=== PATIENT | male | born 1945 | race Hispanic/Latino ===

== ENCOUNTER 2019-05-17 10:42 | Emergency (ER) | payer OTHER ==
[2019-05-17] MEDS ORDERED: DEXAMETHASONE SOD PHOSPHATE 10MG/ML 1ML VIAL ONE (11:03)
[2019-05-17] MEDS ORDERED: KETOROLAC TROMETHAMINE 15MG/ML ONE (11:04)
== END 2019-05-17 12:57 | disposition home or self-care (01) ==
LOC: EDH 10:42
DX: S33.5XXA Sprain of ligaments of lumbar spine, initial encounter (principal); X58.XXXA Exposure to other specified factors, initial encounter; Y93.89 Activity, other specified; Y92.89 Other specified places as the place of occurrence of the external cause; Y99.8 Other external cause status
CPT/HCPCS: 72100; 96372 ×2; 99284; J1100; J1885

== ENCOUNTER 2020-07-25 19:57 | Emergency (ER) | payer OTHER ==
[2020-07-25] MEDS ORDERED: PANTOPRAZOLE 40 MG/VIAL ONE (21:50)
[2020-07-25] MEDS ORDERED: ORPHENADRINE CITRATE 30 MG/ML ML ONE (21:50)
[2020-07-25] MEDS ORDERED: SODIUM CHLORIDE 0.9% 1000ML 1,000 ML IV ONE (21:52)
[2020-07-25] MEDS ORDERED: FAMOTIDINE/PF 20 MG/2 ML VIAL IV ONE (21:52)
[2020-07-25 22:54] LABS: BASOPHILS % (AUTO) 0.9 % (0.0-5.0); EOSINOPHILS % (AUTO) 1.3 % (0.0-8.0); HEMATOCRIT 37.7 % (42-54); LYMPHOCYTES % (AUTO) 32.1 % (21.0-51.0); MEAN CORPUSCULAR HGB CONC 33.4 g/dL (32.0-36.0); MEAN CORPUSCULAR VOLUME 89.8 fL (79-99); MONOCYTES % (AUTO) 7.3 % (3.0-13.0); NEUTROPHILS % (AUTO) 58.2 % (40.0-77.0); PLATELET COUNT (AUTO) 164 K/uL (130-400); RED CELL DISTRIBUTION WIDTH 12.7 % (11.0-15.5); WHITE BLOOD COUNT (AUTO) 4.6 K/uL (4.8-10.8)
[2020-07-25 23:05] LABS: CREATININE 0.7 mg/dL (0.5-1.5); POTASSIUM 3.9 mmol/L (3.5-5.1)
[2020-07-25 23:10] LABS: ALBUMIN 3.9 g/dL (3.5-5.0); BILIRUBIN,TOTAL 0.8 mg/dL (0.2-1.0); TOTAL PROTEIN, SERUM 6.7 g/dL (6.0-8.3)
[2020-07-25 23:16] LABS: INR 1.03 (0.85-1.15); PROTHROMBIN TIME 11.2 SEC (9.6-11.6)
[2020-07-25] MEDS ORDERED: IOHEXOL 350 MG/ML 100ML INFUS..BTL IV ONE (23:17)
[2020-07-25 23:18] LABS: PARTIAL THROMBOPLASTIN TIME 24.2 SEC (26.3-35.5)
[2020-07-26] MEDS ORDERED: KETOROLAC TROMETHAMINE 15MG/ML ONE (00:17)
== END 2020-07-26 00:43 | disposition home or self-care (01) ==
LOC: EDH 19:57
DX: K59.00 Constipation, unspecified (principal); M54.5 Low back pain; E86.9 Volume depletion, unspecified; M62.830 Muscle spasm of back; K21.9 Gastro-esophageal reflux disease without esophagitis; I10 Essential (primary) hypertension; Z87.891 Personal history of nicotine dependence
CPT/HCPCS: 36415; 71260; 74177; 80053; 83605; 83690; 84484; 85025; 85610; 85730; 93005; 96361; 96374; 96375 ×2; 99285; C9113; J1885; J2360; J3490; J7030; Q9967

== ENCOUNTER 2021-01-08 10:52 | Emergency (ER) | payer OTHER ==
[~2021-01-08] VITALS: Ht 170.2 cm; Wt 69.9 kg
[2021-01-08 10:54] VITALS: BP 140/66
[2021-01-08] MEDS ORDERED: BUPIVACAINE/PF 0.5% 30ML VIAL ONE (12:05)
[2021-01-08] MEDS ORDERED: LIDOCAINE HCL 400MG/20ML VIAL ONE (12:09)
[2021-01-08 12:21] VITALS: BP 125/74
[2021-01-08] MEDS ORDERED: TRIAMCINOLONE ACETONIDE 40 MG/ML 1ML VIAL SQ SCH (12:30)
[2021-01-08] MEDS ORDERED: NAPR-1180 PO (12:47)
== END 2021-01-08 13:01 | disposition home or self-care (01) ==
LOC: EDH 10:52
DX: M54.16 Radiculopathy, lumbar region (principal); M54.42 Lumbago with sciatica, left side; E78.00 Pure hypercholesterolemia, unspecified; I10 Essential (primary) hypertension
CPT/HCPCS: 20552; 99284; J3301; J3490

== ENCOUNTER → 2021-03-10 | Outpatient (CLI) | payer OTHER ==
[~2021-03-10] MED LIST: NAPR-1180 PO
== END | disposition home or self-care (01) ==
LOC: SHCH 14:20
PROVIDERS: ATTEND Student in an Organized Health Care Education/Training Program
DX: I36.1 Nonrheumatic tricuspid (valve) insufficiency (principal)
CPT/HCPCS: 93306; 93356

== ENCOUNTER 2021-05-18 10:07 | Emergency (ER) | payer OTHER ==
[~2021-05-18] VITALS: Ht 167.6 cm; Wt 70.3 kg
[2021-05-18 10:33] LABS: EOSINOPHILS % (AUTO) 0.9 % (0.0-8.0); LYMPHOCYTES % (AUTO) 24.6 % (21.0-51.0); MEAN CORPUSCULAR HEMOGLOBIN 30.4 pg (27.0-33.0); MEAN CORPUSCULAR HGB CONC 33.3 g/dL (32.0-36.0); MEAN CORPUSCULAR VOLUME 91.3 fL (79-99); MONOCYTES % (AUTO) 7.9 % (3.0-13.0); NEUTROPHILS % (AUTO) 61.3 % (40.0-77.0); PLATELET COUNT (AUTO) 241 K/uL (130-400); RED BLOOD CELL COUNT(AUTO) 4.38 MIL/uL (4.50-6.20); RED CELL DISTRIBUTION WIDTH 12.4 % (11.0-15.5)
[2021-05-18 10:45] LABS: CREATININE 0.8 mg/dL (0.5-1.5); POTASSIUM 3.6 mmol/L (3.5-5.1)
[2021-05-18 10:50] LABS: ALBUMIN 3.7 g/dL (3.5-5.0); BILIRUBIN,TOTAL 0.6 mg/dL (0.2-1.0); TOTAL PROTEIN, SERUM 6.6 g/dL (6.0-8.3)
[2021-05-18 10:50] LABS: APPEARANCE,URINE Clear (CLEAR); BILIRUBIN,URINE Negative (NEGATIVE); COLOR,URINE Yellow (YELLOW); GLUCOSE, URINE (UA) Negative (NEGATIVE); KETONES,URINE Negative (NEGATIVE); LEUKOCYTE ESTERASE ,URINE Negative (NEGATIVE); NITRATE,URINE Negative (NEGATIVE); OCCULT BLOOD,URINE Small (NEGATIVE); PROTEIN,URINE Negative (NEGATIVE)
[2021-05-18 11:10] LABS: BACTERIA,URINE Rare /HPF (None Seen); RBC,URINE 0-1 /HPF (0-1); SQUAMOUS EPITHELIAL CELL,UR Rare /HPF (0-2); WBC,URINE 0-1 /HPF (0-1)
[2021-05-18 12:12] VITALS: BP 105/62
== END 2021-05-18 12:21 | disposition home or self-care (01) ==
LOC: EDH 10:07
DX: U07.1 COVID-19 (principal); R07.89 Other chest pain; E78.00 Pure hypercholesterolemia, unspecified; I10 Essential (primary) hypertension; Z79.1 Long term (current) use of non-steroidal anti-inflammatories (NSAID)
CPT/HCPCS: 36415; 71045; 80053; 81001; 84484; 85025; 85378; 93005

== ENCOUNTER → 2021-05-23 | Outpatient (CLI) | payer OTHER | END | disposition home or self-care (01) | LOC: SHCH 07:48 | PROVIDERS: ATTEND Student in an Organized Health Care Education/Training Program | DX: I70.1 Atherosclerosis of renal artery (principal); I10 Essential (primary) hypertension | CPT/HCPCS: 93975 ==

== ENCOUNTER → 2021-05-31 | Outpatient (CLI) | payer OTHER ==
[~2021-05-31] MED LIST changes: +IOHEXOL 350 MG/ML 100ML INFUS..BTL IV ONE; +IOHEXOL-350 75 ML VIAL IV ONE; +METOPROLOL TARTRATE 1 MG/ML 5ML VIAL IV ONE
== END | disposition home or self-care (01) ==
LOC: RAH 07:43
PROVIDERS: ATTEND Student in an Organized Health Care Education/Training Program
DX: I25.10 Atherosclerotic heart disease of native coronary artery without angina pectoris (principal)
CPT/HCPCS: 75574; J3490; Q9967 ×2

== ENCOUNTER → 2021-06-28 | Outpatient (CLI) | payer OTHER ==
[~2021-06-28] MED LIST changes: -IOHEXOL 350 MG/ML 100ML INFUS..BTL IV ONE; -IOHEXOL-350 75 ML VIAL IV ONE; -METOPROLOL TARTRATE 1 MG/ML 5ML VIAL IV ONE
== END | disposition home or self-care (01) ==
LOC: SHCH 14:03
PROVIDERS: ATTEND Student in an Organized Health Care Education/Training Program
DX: I70.219 Atherosclerosis of native arteries of extremities with intermittent claudication, unspecified extremity (principal)
CPT/HCPCS: 93925

== ENCOUNTER → 2023-02-14 | Outpatient (CLI) | payer OTHER ==
[~2023-02-14] MED LIST changes: +AMLO-257 PO; +ATOR-2 PO; +CHLO1LIQ2; +CYANOCOBALAMIN PO; +DICL100G60 TP; +FINA5TAB41 PO; +IBUP-1493 PO; +MEMA10TA55 PO; +NUT.237L33 PO; +PSYLLIUM PO; +TAMS-1 PO; +TRAM-355 PO
[2023-02-14 11:23] LABS: BASOPHILS # (AUTO) 0.03 K/uL (0.00-0.20); BASOPHILS % (AUTO) 0.7 % (0.0-5.0); EOSINOPHILS # (AUTO) 0.05 K/uL (0.00-0.70); EOSINOPHILS % (AUTO) 1.2 % (0.0-8.0); HEMATOCRIT 37.6 % (42-54); IMMATURE GRANULOCYTE ABSOLUTE 0.02 K/uL (0-1); LYMPHOCYTES % (AUTO) 23.6 % (21.0-51.0); MEAN CORPUSCULAR HEMOGLOBIN 30.7 pg (27.0-33.0); MEAN CORPUSCULAR HGB CONC 32.7 g/dL (32.0-36.0); MEAN CORPUSCULAR VOLUME 93.8 fL (79-99); MONOCYTES # (AUTO) 0.3 K/uL (0.1-1.0); MONOCYTES % (AUTO) 7.4 % (3.0-13.0); NEUTROPHILS # (AUTO) 2.9 K/uL (1.8-7.7); NEUTROPHILS % (AUTO) 66.6 % (40.0-77.0); PLATELET COUNT (AUTO) 190 K/uL (130-400); RED BLOOD CELL COUNT(AUTO) 4.01 MIL/uL (4.50-6.20); RED CELL DISTRIBUTION WIDTH 13.1 % (11.0-15.5); WHITE BLOOD COUNT (AUTO) 4.3 K/uL (4.8-10.8)
[2023-02-14 11:33] LABS: INR 0.95 (0.85-1.15); PROTHROMBIN TIME 11.1 SEC (9.6-11.6)
[2023-02-14 11:36] LABS: ALBUMIN 3.7 g/dL (3.5-5.0); BILIRUBIN,TOTAL 0.8 mg/dL (0.2-1.0); CREATININE 0.8 mg/dL (0.5-1.5); POTASSIUM 3.8 mmol/L (3.5-5.1); TOTAL PROTEIN, SERUM 6.7 g/dL (6.0-8.3)
== END | disposition home or self-care (01) ==
LOC: LAB 10:20
PROVIDERS: ATTEND Internal Medicine Gastroenterology
DX: Z01.812 Encounter for preprocedural laboratory examination (principal); R93.2 Abnormal findings on diagnostic imaging of liver and biliary tract
CPT/HCPCS: 36415; 80053; 85025; 85610; 87520

== ENCOUNTER → 2023-03-04 | Outpatient (CLI) | payer OTHER ==
[~2023-03-04] MED LIST changes: -IBUP-1493 PO; -NAPR-1180 PO; -TRAM-355 PO
== END | disposition home or self-care (01) ==
LOC: RAH 12:55
PROVIDERS: ATTEND Chiropractor
DX: I07.1 Rheumatic tricuspid insufficiency (principal); I25.10 Atherosclerotic heart disease of native coronary artery without angina pectoris
CPT/HCPCS: 93306

== ENCOUNTER 2023-03-11 14:10 | Emergency (ER) | payer OTHER ==
[~2023-03-11] VITALS: Ht 167.6 cm; Wt 67.1 kg
[2023-03-11 17:58] VITALS: BP 138/53; PULSE 58; RESP 17; O2SAT 99
[2023-03-11] MEDS ORDERED: HYDROMORPHONE 0.5 MG SYG (0.5MG/0.5ML) IVP STA (19:26)
[2023-03-11] MEDS ORDERED: ONDANSETRON 4MG INJ IVP STA (19:26)
[2023-03-11] MEDS ORDERED: ONDANSETRON 4MG INJ ONE (19:28)
[2023-03-11] MEDS ORDERED: HYDROMORPHONE 0.5 MG SYG (0.5MG/0.5ML) ONE (19:28)
[2023-03-11] MEDS ORDERED: HYDR-4377 PO (19:44)
== END 2023-03-11 20:13 | disposition home or self-care (01) ==
LOC: EDH 14:10
DX: S22.32XA Fracture of one rib, left side, initial encounter for closed fracture (principal); E78.00 Pure hypercholesterolemia, unspecified; I10 Essential (primary) hypertension; V19.9XXA Pedal cyclist (driver) (passenger) injured in unspecified traffic accident, initial encounter; Y93.89 Activity, other specified; Y92.89 Other specified places as the place of occurrence of the external cause; Y99.8 Other external cause status
CPT/HCPCS: 99284; 96374; 29515; 96375; 82550; 36415; 71100; 73590; J2405; J1170

== ENCOUNTER 2023-06-25 13:51 | Emergency (ER) | payer OTHER ==
[~2023-06-25] VITALS: Ht 167.6 cm; Wt 68.0 kg
[~2023-06-25 13:51] MED LIST changes: +HYDR-4377 PO
[2023-06-25 21:35] LABS: BASOPHILS # (AUTO) 0.03 K/uL (0.00-0.20); BASOPHILS % (AUTO) 0.4 % (0.0-5.0); EOSINOPHILS # (AUTO) 0.03 K/uL (0.00-0.70); EOSINOPHILS % (AUTO) 0.4 % (0.0-8.0); HEMATOCRIT 38.3 % (42-54); IMMATURE GRANULOCYTE ABSOLUTE 0.04 K/uL (0-1); LYMPHOCYTES # (AUTO) 1.1 K/uL (1.0-4.8); LYMPHOCYTES % (AUTO) 14.2 % (21.0-51.0); MEAN CORPUSCULAR HEMOGLOBIN 30.3 pg (27.0-33.0); MEAN CORPUSCULAR HGB CONC 32.9 g/dL (32.0-36.0); MEAN CORPUSCULAR VOLUME 92.1 fL (79-99); MONOCYTES # (AUTO) 0.8 K/uL (0.1-1.0); MONOCYTES % (AUTO) 9.4 % (3.0-13.0); NEUTROPHILS % (AUTO) 75.1 % (40.0-77.0); PLATELET COUNT (AUTO) 179 K/uL (130-400); RED BLOOD CELL COUNT(AUTO) 4.16 MIL/uL (4.50-6.20); RED CELL DISTRIBUTION WIDTH 13.5 % (11.0-15.5)
[2023-06-25 21:50] LABS: POTASSIUM 4.2 mmol/L (3.5-5.1)
[2023-06-25 21:54] LABS: BILIRUBIN,TOTAL 1.1 mg/dL (0.2-1.0); TOTAL PROTEIN, SERUM 7.1 g/dL (6.0-8.3)
[2023-06-25] MEDS: 0.9%NACL 1000ML 1,000 ML IV ONE (22:49)
[2023-06-25] MEDS: METOCLOPRAMIDE 10 MG/2 ML VIAL IVP ONE (22:50)
[2023-06-25] MEDS: FAMOTIDINE 20MG VIAL IV ONE (22:50)
[2023-06-25] MEDS: KETOROLAC 30MG VIAL (30MG/ML) IVP ONE (22:50)
[2023-06-26 07:40] LABS: APPEARANCE,URINE CLEAR (CLEAR); BILIRUBIN,URINE NEGATIVE (NEGATIVE); COLOR,URINE LIGHT-YELLOW (YELLOW); GLUCOSE, URINE (UA) NEGATIVE (NEGATIVE); KETONES,URINE 5 mg/dL (NEGATIVE); LEUKOCYTE ESTERASE ,URINE NEGATIVE Leu/uL (NEGATIVE); NITRATE,URINE NEGATIVE (NEGATIVE); OCCULT BLOOD,URINE MODERATE (NEGATIVE); PH,URINE 5.5 (5.0-8.0); PROTEIN,URINE 10 mg/dL (NEGATIVE); UROBILINOGEN,URINE 0.2 mg/dL (0.2-1.0)
[2023-06-26 07:45] LABS: ADD UA MICROSCOPIC YES
[2023-06-26 07:54] LABS: MUCUS,URINE RARE LPF (None Seen); RBC,URINE 51-100 /HPF (0-1); SQUAMOUS EPITHELIAL CELL,UR RARE /HPF (0-2)
[2023-06-26 13:53] VITALS: BP 145/61; PULSE 60; RESP 18; O2SAT 98
== END 2023-06-26 13:50 | disposition home or self-care (01) ==
LOC: EDH 13:51
DX: N40.0 Benign prostatic hyperplasia without lower urinary tract symptoms (principal); N32.3 Diverticulum of bladder; I10 Essential (primary) hypertension; E78.00 Pure hypercholesterolemia, unspecified; Z79.899 Other long term (current) drug therapy; Z98.890 Other specified postprocedural states
CPT/HCPCS: 99285; 74181; 96374; 71045; 96361; 96375; 82150; 82550; 84484 ×2; 80053; 83690; 85025; 81001; 36415; 93005; 72195; J3490; J7030; J1885; J2765

== ENCOUNTER → 2023-11-27 | Outpatient (CLI) | payer OTHER ==
[~2023-11-27] MED LIST changes: +MEMA10TA21 PO; -MEMA10TA55 PO
[2023-11-27 12:11] LABS: BASOPHILS # (AUTO) 0.03 K/uL (0.00-0.20); BASOPHILS % (AUTO) 0.8 % (0.0-5.0); EOSINOPHILS # (AUTO) 0.15 K/uL (0.00-0.70); EOSINOPHILS % (AUTO) 3.9 % (0.0-8.0); HEMATOCRIT 38.3 % (42-54); IMMATURE GRANULOCYTE ABSOLUTE 0.01 K/uL (0-1); LYMPHOCYTES # (AUTO) 0.9 K/uL (1.0-4.8); LYMPHOCYTES % (AUTO) 23.1 % (21.0-51.0); MEAN CORPUSCULAR HEMOGLOBIN 30.3 pg (27.0-33.0); MEAN CORPUSCULAR HGB CONC 32.6 g/dL (32.0-36.0); MONOCYTES # (AUTO) 0.4 K/uL (0.1-1.0); MONOCYTES % (AUTO) 9.1 % (3.0-13.0); NEUTROPHILS # (AUTO) 2.4 K/uL (1.8-7.7); NEUTROPHILS % (AUTO) 62.8 % (40.0-77.0); PLATELET COUNT (AUTO) 196 K/uL (130-400); RED BLOOD CELL COUNT(AUTO) 4.12 MIL/uL (4.50-6.20); WHITE BLOOD COUNT (AUTO) 3.9 K/uL (4.8-10.8)
[2023-11-27 12:42] LABS: ALBUMIN 3.8 g/dL (3.5-5.0); BILIRUBIN,TOTAL 0.6 mg/dL (0.2-1.0); CREATININE 0.8 mg/dL (0.5-1.3); POTASSIUM 4.1 mmol/L (3.5-5.1)
== END | disposition home or self-care (01) ==
LOC: LAB 11-26 11:28
PROVIDERS: ATTEND Student in an Organized Health Care Education/Training Program
DX: R06.02 Shortness of breath (principal); E78.2 Mixed hyperlipidemia; R53.83 Other fatigue; Z79.899 Other long term (current) drug therapy
CPT/HCPCS: 36415; 80053; 80061; 82607; 84153; 84154; 85025

== ENCOUNTER → 2024-07-01 | Outpatient (CLI) | payer OTHER ==
--- NOTE | 2024-07-06 22:10 | HMCSR ---
APPROVED REPORT Laterality: Bilateral Indications Anemia Doppler Spectral Velocity Analysis PSV / EDVPSV / EDV ECA (R) 104 / cm/sECA (L) 120 / cm/s dICA (R) 95 / 34 cm/sdICA (L) 73 / 28 cm/s Petra (R) 103 / 29 cm/smICA (L) 82 / 27 cm/s pICA (R) 103 / 27 cm/spICA (L) 87 / 26 cm/s dCCA (R) 81 / 16 cm/sdCCA (L) 79 / 23 cm/s mCCA (R) 107 / 21 cm/smCCA (L) 103 / 26 cm/s pCCA (R) 82 / 24 cm/spCCA (L) 126 / 28 cm/s Vert (R) 53 / cm/sVert (L) 38 / cm/s Subl. (R) 164 / cm/sSubl. (L) 139 / cm/s ICA/CCA 0.96ICA/CCA 0.69 Technologist Impression Minimal plaque noted in the bilateral carotids. IBIS and LICA appear patent without hemodynamic significance. Bilateral vertebral arteries appear antegrade. Conclusion Minimal plaque noted in the bilateral carotids. IBIS and LICA appear patent without hemodynamic significance. Bilateral vertebral arteries appear antegrade. Conclusion Minimal plaque noted in the bilateral carotids. IBIS and LICA appear patent without hemodynamic significance. Bilateral vertebral arteries appear antegrade.
== END | disposition home or self-care (01) ==
LOC: SHCH 10:35
PROVIDERS: ATTEND Student in an Organized Health Care Education/Training Program
DX: I87.2 Venous insufficiency (chronic) (peripheral) (principal); I70.1 Atherosclerosis of renal artery; D64.9 Anemia, unspecified; I10 Essential (primary) hypertension; E78.5 Hyperlipidemia, unspecified; E11.9 Type 2 diabetes mellitus without complications; R06.02 Shortness of breath; R09.89 Other specified symptoms and signs involving the circulatory and respiratory systems; I25.10 Atherosclerotic heart disease of native coronary artery without angina pectoris; Z79.899 Other long term (current) drug therapy
CPT/HCPCS: 93880

== ENCOUNTER → 2024-08-15 | Outpatient (CLI) | payer OTHER ==
[~2024-08-15] MED LIST changes: -TAMS-1 PO; +TAMS-55 PO
== END | disposition home or self-care (01) ==
LOC: SHCH 13:06
PROVIDERS: ATTEND Student in an Organized Health Care Education/Training Program
DX: I87.2 Venous insufficiency (chronic) (peripheral) (principal); I87.1 Compression of vein; I73.9 Peripheral vascular disease, unspecified
CPT/HCPCS: 93970

== ENCOUNTER → 2025-02-26 | Outpatient (CLI) | payer OTHER ==
[~2025-02-26] MED LIST changes: +IOHEXOL-350 75 ML VIAL IV ONE
--- NOTE | 2025-02-27 17:01 | HMCIMG ---
EXAM: CT Head With and Without Intravenous Contrast CLINICAL HISTORY: Insomnia, unspecified TECHNIQUE: Axial computed tomography images of the head/brain were obtained before and after intravenous contrast administration. Multiplanar reformatted images were reviewed. CONTRAST: With intravenous contrast. COMPARISON: None provided. FINDINGS: BRAIN: No evidence of acute intracranial hemorrhage, mass lesion, or abnormal post-contrast enhancement. No CT evidence of acute territorial infarct. Age-appropriate diffuse cerebral volume loss with chronic small vessel ischaemic changes involving the bilateral fronto-parietal white matter. No midline shift or extra-axial fluid collection. VENTRICLES: Mild prominence of ventricles and cortical sulci, in proportion to cerebral volume loss. No hydrocephalus. ORBITS: Normal and symmetrical. SINUSES AND MASTOIDS: Paranasal sinuses and mastoid air cells are clear. BONES: Calvarium intact. No fracture or destructive lesion. IMPRESSION: * Age-related diffuse cerebral atrophy with chronic small vessel ischaemic changes in the bilateral fronto-parietal white matter. * No acute intracranial hemorrhage, infarction, mass, or abnormal enhancement. /[place]
== END | disposition home or self-care (01) ==
LOC: RAH 12:38
PROVIDERS: ATTEND Student in an Organized Health Care Education/Training Program
DX: I67.82 Cerebral ischemia (principal); G47.00 Insomnia, unspecified; F07.0 Personality change due to known physiological condition; R51.9 Headache, unspecified
CPT/HCPCS: 70470; Q9967

== ENCOUNTER 2025-04-13 12:59 | Emergency (ER) | payer OTHER ==
[~2025-04-13] VITALS: Ht 170.2 cm; Wt 76.2 kg
[~2025-04-13 12:59] MED LIST changes: -IOHEXOL-350 75 ML VIAL IV ONE
--- NOTE | 2025-04-13 13:05 | ERN ---
ED Note History of Present Illness Stated Complaint: LUMP TO INCISION SITE Chief Complaint: Other Problems Time Seen by MD: 13:02 Dictation: PATIENT IS A 80-YEAR-OLD MALE WITH A SWELLING HERE TO HIS LEFT INGUINAL AREA STATUS POST A HEART CATHETERIZATION LAST WEEK. NEUROVASCULAR CMS INTACT TO LEFT LEG. NO PAIN Allergies: Coded Allergies: No Known Allergies (Unverified Allergy, Unknown, 07/26/20) Home Meds Active Scripts Hydrocodone/Acetaminophen (Hydrocodone-Acetamin 5-300 mg) 5 Mg-300 Mg Tablet, 1 EACH PO q8hrs PRN for PAIN for 3 Days, #9 TAB Prov:JOLYNN FLETCHER MD 03/11/23 Reported Medications Amlodipine Besylate (Amlodipine Besylate) 5 Mg Tablet, 5 MG PO DAILY, TAB 02/21/23 Tamsulosin HCl (Flomax) 0.4 Mg Cap.er.24h, 0.4 MG PO HS, CAPSULE.DR 02/15/23 Finasteride (Finasteride) 5 Mg Tablet, 5 MG PO HS, TAB 02/15/23 [Psyllium Pwd] No Conflict Check, 1 TBS PO BID PRN for CONSTIPATION 02/15/23 Nut.tx.gluc.intoler,Lac-Fr,Soy (Glucerna) 237 Ml Liquid, 237 ML PO BID 02/15/23 Memantine HCl (Memantine HCl) 10 Mg Tablet, 5 MG PO BID, TAB 02/15/23 Diclofenac Sodium (Diclofenac Sodium) 1 % Gel..gram., 4 GM TP QID PRN for PAIN 02/15/23 [Cyanocobalamin] No Conflict Check, 1000 MCG PO DAILY 02/15/23 Chlorhexidine (Chlorhexidine Flavor) 1 Ml Liquid, 15 ML .AD QID 02/15/23 Atorvastatin Calcium (Atorvastatin Calcium) 80 Mg Tablet, 80 MG PO HS, TAB 02/15/23 Past Medical History Past Medical History: High Cholesterol, Hypertension, Other Additional Past Medical Hx: BACK PAIN Surgical History: Other Surgical History Other: ABD HERNIA REPAIR Family History: Negative Social History: Negative, Other RN Note Reviewed/Agreed w/PFSH: Yes Review of System Dictation CONSTITUTIONAL: Negative except for HPI HEAD/FACE: Negative except for HPI EENT: Negative except for HPI RESPIRATORY: Negative except for HPI GASTROINTESTINAL/ABDOMINAL: Negative except for HPI GENITOURINARY: Negative except for HPI MUSCULOSKELETAL: Negative except for HPI left inguinal pain INTEGUMENTARY: Negative except for HPI NEUROLOGICAL/PSYCH: Negative except for HPI HEMATOLOGIC/LYMPHATIC: Negative except for HPI All Systems Negative, Except as noted above. 13 point review of systems assessed and all negative except for above. Initial Vital Sign VS Vital Signs Date Time Temp Pulse Resp B/P (MAP) Pulse Ox O2 Delivery O2 Flow Rate FiO2 04/13/25 13:00 98.2 57 16 117/56 99 Room Air 04/13/25 13:36 0 21 Physical Exam Dictation Vital Signs reviewed General Appearance: Alert, oriented x 3, no acute distress, well developed, nourished. Head and Face: non-traumatic. Eyes: PERRL, pink conjunctivas, eyelid no trauma, anterior chamber with arcus senilis. Ears: Pinnas intact and no signs of trauma or erythema ear canals clear and no discharge TM no erythema Nose: No discharge, no bleeding. Oropharynx: Mouth normal, tongue pink, pharynx clear,no erythema, tonsils no exudates, no abscesses noted, mucous membrane moist Neck: Supple, non-tender, no thyromegaly, no masses, no JVD, no bruits Breast:Deferred Chest:No tenderness, no crepitus, no paradoxical movement, no retractions Lungs:Clear, well-ventilated, symmetric, no rales, no wheezing, no rhonchi, no stridor, good breath sounds bilaterally Heart: Regular rate, regular rhythm, no murmur, no gallops Vascular: no peripheral edema, Abdomen: Soft, positive bowel sounds, nondistended, no guarding, nontender, no rebound, no masses no hepatomegaly, no splenomegaly, no Browning's sign, no hernias. No palpable mass or swelling to left inguinal groin area Rectal: Deferred Genital: Deferred Neurological: Normal speech, motor function intact, sensory function intact Musculoskeletal: Neck nontender, full range of motion, back nontender, full range of motion, Extremities: nontender, full range of motion Skin: Color pink, dry, no turgor, no rash, no lacerations, no abrasions, no contusions. Lymphatic: Deferred Results (Laboratory/Radiology) Laboratory/Radiology Abdominal pelvic ultrasound demonstrates no pseudo aneurysm Etymology Professor TRIPHASIC CFV COMPRESSIBLE Labs Reviewed?: Yes ED Course ED Course Orders Procedure Category Date Status Time Us Soft Tissue Groin US 04/13/25 Taken 13:04 Vital Signs Date Time Temp Pulse Resp B/P (MAP) Pulse Ox O2 Delivery O2 Flow Rate FiO2 04/13/25 13:36 97.2 52 12 109/55 99 Room Air* 0 21 04/13/25 13:00 98.2 57 16 117/56 99 Room Air Medical Decision Making [facility] 1410/MEDICAL DISCHARGE MAKING BASED ON ULTRASOUND TO RULE OUT ANEURYSM STATUS POST HEART CATHETERIZATION. ULTRASOUND IS UNREMARKABLE CFV, COMPRESSIBLE, CORONARY CLINICAL SPECIALIST, TRIPHASIC NO LESION DX & DISP Disposition: Discharge Departure Impression: Primary Impression: Left inguinal pain Additional Impression: Status post left heart catheterization Condition: Stable Additional Instructions: FOLLOW-UP WITH PRIMARY CARE PROVIDER IN 1 TO 2 DAYS. TAKE MEDICATIONS DIRECTED HERE IN THE EMERGENCY ROOM. OKAY TO CONTINUE HOME MEDICATIONS UNLESS OTHERWISE DISCUSSED DURING YOUR VISIT IN THE EMERGENCY ROOM TODAY. RETURN TO YOUR NEAREST EMERGENCY ROOM IF SYMPTOMS WORSEN OR IF THERE IS NO IMPROVEMENT. CALL 911 IF YOU NEED IMMEDIATE ASSISTANCE. TAKE TYLENOL OR MOTRIN [id number] NEEDED AND IF NO CONTRAINDICATIONS ARE PRESENT. INCREASE ORAL HYDRATION. A WOUND CULTURE OR URINE CULTURE WAS ORDERED HERE IN THE EMERGENCY ROOM DEPARTMENT PLEASE FOLLOW-UP WITH PRIMARY CARE PROVIDER AND ADVISE THEM TO GET REPEAT PORTS FROM OUR FACILITY. IF YOU HAD ANY JARON WRAP/SPLINTS THAT WERE APPLIED HERE, PLEASE DO NOT REMOVE THEM UNTIL YOU SEE YOUR PRIMARY CARE OR SPECIALTY. CONTINUE ALL YOUR MEDICATIONS AND TREATMENTS FROM YOUR INSTRUCTIONS FROM YOUR CATHETERIZATION LAST WEEK. SEE YOUR PRIMARY CARE DOCTOR FOR FOLLOW UP Referrals: EVAN BUSH MD (PCP) Time of Disposition: 14:12 I have reviewed the case, and I agree with, Diagnosis and Plan MATEUS HUTTON Apr 13, 2025 13:05
--- NOTE | 2025-04-13 14:51 | HMCIMG ---
STUDY Ultrasound examination, left inguinal region. HISTORY Swelling in the left inguinal groin region status post heart catheterization. TECHNIQUE Targeted real-time grayscale and duplex Doppler ultrasound of the left groin was performed with image documentation. COMPARISON None provided. FINDINGS At the left common femoral artery access region, the artery demonstrates a normal triphasic Doppler waveform with a peak systolic velocity of approximately 111 cm/sec, without focal dilatation, necked sac, or yin-logan flow pattern to suggest pseudoaneurysm. The adjacent left common femoral vein is fully compressible with normal venous Doppler flow and no evidence of deep venous thrombosis or arteriovenous fistula. No discrete groin hematoma, organized fluid collection, or soft tissue mass is identified in the area of clinical concern. IMPRESSION * Normal triphasic flow in the left common femoral artery and a compressible left common femoral vein without sonographic evidence of post-catheterization pseudoaneurysm, arteriovenous fistula, or deep venous thrombosis. * No significant groin hematoma or other acute abnormality identified at the left inguinal region. /[place]
[2025-04-13 15:05] VITALS: BP 117/55; PULSE 78; RESP 15; TEMP 98; O2SAT 99
--- NOTE | 2025-04-13 15:06 | NUR ---
DC PATIENT WAS DC'D BY DR DENNEY I EXPLAINED TO PATIENT TO FOLLOW UP WITH PCP, PROVIDED INFO BASED ON DIAGNOSIS, , AND ANSWERED ANY FOLLOW UP QUESTIONS, PATIENT AMBULATED OUT OF ED, NO COMPLICATIONS
== END 2025-04-13 15:13 | disposition home or self-care (01) ==
LOC: EDH 12:59
DX: R10.32 Left lower quadrant pain (principal); Z98.61 Coronary angioplasty status; I10 Essential (primary) hypertension; E78.00 Pure hypercholesterolemia, unspecified; Z98.890 Other specified postprocedural states; Z79.899 Other long term (current) drug therapy
CPT/HCPCS: 76882; 99284